=== PATIENT | male | born 1970 | race Caucasian/White ===

== ENCOUNTER 2020-08-23 16:46 | Inpatient (IN) | payer BC ==
[2020-08-23] MEDS ORDERED: SODIUM CHLORIDE 0.9% 1,000 ML IV STA ×2 (17:28)
[2020-08-23] MEDS ORDERED: METOCLOPRAMIDE 5 MG/ML 2 ML VIAL IVP STA (17:31)
[2020-08-23] MEDS ORDERED: fentaNYL (PF) 50 MCG/ML 2 ML AMP IV STA (17:32)
[2020-08-23] MEDS ORDERED: diphenhydrAMINE 50 MG/ML 1 ML VIAL IVP STA (17:32)
[2020-08-23 17:52] LABS: Basophils % (A) 0 %; Eosinophils % (A) 0 %; HCT 40.9 % (39.0-53.0); HGB 14.5 gm/dL (13.0-17.5); Lymphocytes # (A) 0.8 k/uL (1.0-4.8); Lymphocytes % (A) 17 %; MCH 30.6 pg (25.0-35.0); MCHC 35.4 g/dL (31.0-37.0); MCV 86.4 fL (80.0-100.0); Mean Platelet Volume 6.9; Monocytes # (A) 0.4 k/uL (0-1.0); Monocytes % (A) 8 %; Neutrophils # (A) 3.6 k/uL (1.3-7.7); Neutrophils % (A) 74 %; Platelet Count 221 k/uL (150-450); RBC 4.73 m/uL (4.30-5.90); RDW 11.9 % (11.5-15.5); WBC 4.8 k/uL (3.8-10.6)
--- NOTE | 2020-08-23 17:52 | ED ---
Dizziness HPI - General Chief Complaint: Dizziness Stated Complaint: SOB,COVID + Time Seen by Provider: 08/23/20 17:00 Source: patient, EMS, RN notes reviewed Mode of arrival: EMS Limitations: no limitations - History of Present Illness Initial Comments: This is a 50-year-old male was diagnosed with: On the first of this month after having symptoms for about 4 days who is single episode 2 days ago was admitted for observation overnight. The patient presents today with complaints of headache weakness fevers chills sweats shortness of breath. Decreased oral intake generally not feeling well. He states his headache is somewhat global and pressure-like 10/10 severity. No visual difficulties no focal weakness. He does state he had a CAT scan done and lab work at [facility] which apparently was within recently normal limits. MD Complaint: dizziness, lightheadedness, near syncope, difficulty walking - Related Data Home Medications Medication Instructions Recorded Confirmed Azithromycin [Zithromax Z-pack (6 See Taper PO DIRECTED 08/23/20 08/23/20 tabs)] Losartan Potassium [Cozaar] 50 mg PO DAILY 08/23/20 08/23/20 Pravastatin Sodium [Pravachol] 40 mg PO DAILY 08/23/20 08/23/20 Allergies Allergy/AdvReac Type Severity Reaction Status Date / Time Penicillins Allergy Diarrhea Verified 08/23/20 18:31 Review of Systems ROS Statement: Those systems with pertinent positive or pertinent negative responses have been documented in the HPI. ROS Other: All systems not noted in ROS Statement are negative. Past Medical History Past Medical History: Hyperlipidemia, Hypertension Additional Past Medical History / Comment(s): covid 07/2020, History of Any Multi-Drug Resistant Organisms: None Reported Past Surgical History: No Surgical Hx Reported Past Psychological History: No Psychological Hx Reported Smoking Status: Never smoker Past Alcohol Use History: None Reported Past Drug Use History: None Reported General Exam - General Exam Comments Initial Comments: This is a well-developed well-nourished awake alert oriented times female with a [place] Coma Scale of 15 Limitations: no limitations General appearance: alert, anxious, in distress Head exam: Present: other (Evidence of healing abrasion to the right orbit and forehead. No step-off or crepitation) Eye exam: Present: normal appearance, PERRL, EOMI. Absent: scleral icterus, conjunctival injection, periorbital swelling ENT exam: Present: mucous membranes dry Neck exam: Present: tenderness (There is bilateral tenderness), full ROM ( no step-off no crepitation), other (No stridor. Bruits) Respiratory exam: Present: normal lung sounds bilaterally. Absent: respiratory distress, wheezes, rales, rhonchi, stridor Cardiovascular Exam: Present: regular rate, normal rhythm, normal heart sounds. Absent: systolic murmur, diastolic murmur, rubs, gallop, clicks GI/Abdominal exam: Present: soft, normal bowel sounds. Absent: distended, tenderness, guarding, rebound, rigid Extremities exam: Present: normal inspection, full ROM, normal capillary refill. Absent: tenderness, pedal edema, joint swelling, calf tenderness Back exam: Present: normal inspection Neurological exam: Present: alert, oriented X3, CN II-XII intact Psychiatric exam: Present: normal affect, normal mood Skin exam: Present: warm, dry, normal color, other (As above). Absent: rash Course Vital Signs 08/23/20 08/23/20 08/23/20 16:57 18:13 19:05 Temperature 99.9 F H Pulse Rate 84 70 77 Respiratory 18 18 18 Rate Blood Pressure 144/81 141/86 135/80 O2 Sat by Pulse 95 97 95 Oximetry - Reevaluation(s) Reevaluation #1: 08/23/20 21:34 Reevaluation the patient initial encounter reveals his headache was improved this did recur however. EKG Findings - EKG Results: EKG: interpreted by ERMVikki, sinus rhythm (Normal sinus rhythm 81. 162 QRS 80 QT since QTC 358/[address]-T wave changes) Medical Decision Making - Medical Decision Making Patient persisted having some dizziness as well as headache intermittently again the CT was were negative. He does demonstrate bilateral pneumonia on x-ray however. This was not apparent on the x-ray done 2 days ago. Discussed case with Dr. Thompson the patient be admitted IV hydration inpatient care for Covid 19 as well as neurology consultation. - Lab Data Result diagrams: 08/23/20 17:36 08/23/20 18:27 Lab Results 08/23/20 08/23/20 08/23/20 Range/Units 17:36 17:36 17:36 WBC 4.8 (3.8-10.6) k/uL RBC 4.73 (4.30-5.90) m/uL Hgb 14.5 (13.0-17.5) gm/dL Hct 40.9 (39.0-53.0) % MCV 86.4 (80.0-100.0) fL MCH 30.6 (25.0-35.0) pg MCHC 35.4 (31.0-37.0) g/dL RDW 11.9 (11.5-15.5) % Plt Count 221 (150-450) k/uL MPV 6.9 Neutrophils % 74 % Lymphocytes % 17 % Monocytes % 8 % Eosinophils % 0 % Basophils % 0 % Neutrophils # 3.6 (1.3-7.7) k/uL Lymphocytes # 0.8 L (1.0-4.8) k/uL Monocytes # 0.4 (0-1.0) k/uL Eosinophils # 0.0 (0-0.7) k/uL Basophils # 0.0 (0-0.2) k/uL D-Dimer 0.51 (<0.60) mg/L FEU Sodium (137-145) mmol/L Potassium (3.5-5.1) mmol/L Chloride (98-107) mmol/L Carbon Dioxide (22-30) mmol/L Anion Gap mmol/L BUN (9-20) mg/dL Creatinine (0.66-1.25) mg/dL Est GFR (CKD-EPI)AfAm (>60 ml/min/1.73 sqM) Est GFR (CKD-EPI)NonAf (>60 ml/min/1.73 sqM) Glucose (74-99) mg/dL Plasma Lactic Acid Federico 0.8 (0.7-2.0) mmol/L Calcium (8.4-10.2) mg/dL Magnesium (1.6-2.3) mg/dL Total Bilirubin (0.2-1.3) mg/dL AST (17-59) U/L ALT (4-49) U/L Alkaline Phosphatase (38-126) U/L Troponin I (0.000-0.034) ng/mL NT-Pro-B Natriuret Pep pg/mL Total Protein (6.3-8.2) g/dL Albumin (3.5-5.0) g/dL 04/03/21 04/03/21 04/03/21 Range/Units 17:36 18:27 18:27 WBC (3.8-10.6) k/uL RBC (4.30-5.90) m/uL Hgb (13.0-17.5) gm/dL Hct (39.0-53.0) % MCV (80.0-100.0) fL MCH (25.0-35.0) pg MCHC (31.0-37.0) g/dL RDW (11.5-15.5) % Plt Count (150-450) k/uL MPV Neutrophils % % Lymphocytes % % Monocytes % % Eosinophils % % Basophils % % Neutrophils # (1.3-7.7) k/uL Lymphocytes # (1.0-4.8) k/uL Monocytes # (0-1.0) k/uL Eosinophils # (0-0.7) k/uL Basophils # (0-0.2) k/uL D-Dimer (<0.60) mg/L FEU Sodium 134 L (137-145) mmol/L Potassium 4.1 (3.5-5.1) mmol/L Chloride 103 (98-107) mmol/L Carbon Dioxide 24 (22-30) mmol/L Anion Gap 7 mmol/L BUN 12 (9-20) mg/dL Creatinine 0.97 (0.66-1.25) mg/dL Est GFR (CKD-EPI)AfAm >90 (>60 ml/min/1.73 sqM) Est GFR (CKD-EPI)NonAf >90 (>60 ml/min/1.73 sqM) Glucose 88 (74-99) mg/dL Plasma Lactic Acid Federico (0.7-2.0) mmol/L Calcium 7.6 L (8.4-10.2) mg/dL Magnesium 2.0 (1.6-2.3) mg/dL Total Bilirubin 0.9 (0.2-1.3) mg/dL AST 48 (17-59) U/L ALT 42 (4-49) U/L Alkaline Phosphatase 50 (38-126) U/L Troponin I <0.012 (0.000-0.034) ng/mL NT-Pro-B Natriuret Pep 65 pg/mL Total Protein 6.1 L (6.3-8.2) g/dL Albumin 3.4 L (3.5-5.0) g/dL - Radiology Data Radiology results: report reviewed (Imaging reviewed no acute findings I did review the imaging from [facility] as well as a hospital ER record that was faxed to this facility.), image reviewed Disposition Clinical Impression: Dizziness, Cephalgia, COVID-19, Viral pneumonia, Dehydration, History of syncope Disposition: ADMITTED IP TO THIS [facility] Condition: Fair Referrals: Lamberto Barry DO [Primary Care Provider] - 1-2 days
--- NOTE | 2020-08-23 17:59 | XR ---
EXAMINATION TYPE: XR chest 2V DATE OF EXAM: 08/23/2020 COMPARISON: 11/27/2011 HISTORY: Pain TECHNIQUE: 2 views FINDINGS: There is interstitial infiltrates and atelectasis in the mid and lower lung granados. Heart s ize is normal. There is no heart failure. There is poor inspiration. IMPRESSION: New pulmonary infiltrates and atelectasis bilaterally compared to old exam. Normal heart.
[2020-08-23 18:46] LABS: ALT 42 U/L (4-49); AST 48 U/L (17-59); African American GFR (CKD) >90 (>60 ml/min/1.73 sqM); Albumin 3.4 g/dL (3.5-5.0); Alkaline Phosphatase 50 U/L (38-126); Anion Gap 7 mmol/L; Blood Urea Nitrogen 12 mg/dL (9-20); Calcium 7.6 mg/dL (8.4-10.2); Carbon Dioxide 24 mmol/L (22-30); Chloride 103 mmol/L (98-107); Glucose 88 mg/dL (74-99); Non-African American GFR(CKD) >90 (>60 ml/min/1.73 sqM); Sodium 134 mmol/L (137-145); Total Bilirubin 0.9 mg/dL (0.2-1.3); Total Protein 6.1 g/dL (6.3-8.2)
[2020-08-23 18:51] LABS: Potassium 4.1 mmol/L (3.5-5.1)
[2020-08-23] MEDS ORDERED: KETOROLAC 15 MG/ML 1 ML VIAL IVP STA (20:30)
--- NOTE | 2020-08-23 20:59 | CT ---
EXAMINATION TYPE: CT brain wo con DATE OF EXAM: 08/23/2020 COMPARISON: None HISTORY: Dizziness and headache. CT DLP: 1129.4 mGycm Automated exposure control for dose reduction was used. Ventricles have normal size. There is no mass effect nor midline shift. There is no sign of intracran ial hemorrhage. Calvarium is intact. Skull base is intact. There is no evidence of cerebral edema. IMPRESSION: Negative unenhanced head CT scan.
[2020-08-23] MEDS ORDERED: ONDANSETRON 4 MG/2 ML VIAL IVP PRN (21:37)
[2020-08-23] MEDS ORDERED: NALOXONE 0.4 MG/ML 1 ML VIAL IV PRN (21:37)
[2020-08-23] MEDS ORDERED: dexAMETHasone 2 MG TAB PO STA (21:52)
[2020-08-23] MEDS: AZITHROMYCIN 250 MG TAB PO SCH (22:49)
[2020-08-23] MEDS: ACETAMINOPHEN TAB 325 MG TAB PO PRN (23:21)
[2020-08-24] MEDS: ACETAMINOPHEN TAB 325 MG TAB PO PRN (05:34)
[2020-08-24] MEDS: CHOLECALCIFEROL 25 MCG (1000 IU) TABLET PO SCH (09:56)
[2020-08-24] MEDS: LOSARTAN 50 MG TAB PO SCH (09:56)
[2020-08-24] MEDS: ASCORBIC ACID 500 MG TAB PO SCH (09:56)
[2020-08-24] MEDS: ZINC SULFATE 220 MG CAP PO SCH (09:56)
[2020-08-24] MEDS: ENOXAPARIN 40 MG/0.4 ML SYRINGE SQ SCH (09:56)
[2020-08-24 11:02] LABS: Basophils % (A) 0 %; Eosinophils % (A) 0 %; Lymphocytes # (A) 0.5 k/uL (1.0-4.8); Lymphocytes % (A) 12 %; MCH 30.5 pg (25.0-35.0); MCHC 34.8 g/dL (31.0-37.0); MCV 87.5 fL (80.0-100.0); Mean Platelet Volume 6.3; Monocytes # (A) 0.3 k/uL (0-1.0); Monocytes % (A) 7 %; Neutrophils # (A) 3.2 k/uL (1.3-7.7); Neutrophils % (A) 80 %; Platelet Count 262 k/uL (150-450); RBC 4.92 m/uL (4.30-5.90); RDW 12.5 % (11.5-15.5)
--- NOTE | 2020-08-24 11:03 | P.CNNES ---
History of Present Illness Consult date: 08/24/20 Requesting physician: Akil Ruffin Reason for Consult: headache and dizziness History of Present Illness: This is a 50-year-old gentleman with medical history of hypertension and hyperlipidemia who presents to the emergency department on 08/23/2020 complaining of headache and generalized weakness. The patient has been having the fevers and shortness of breath. According to the patient the he's been having coughing, low-grade fever for the last 4-5 days. He was recently diagnosed with Covid 19 couple days ago Patient stated that on Tuesday morning around 2:00 in the morning he got out of bed and that he took a couple steps he felt lightheaded and he felt dizzy like the room is spinning then that he fell on the ground. He stated that he passed upper 1 minutes. His as a result called EMS. He denied any urinary, bowel incontinence. Denied any tongue bite that. He was taken to [facility] there they did affect a CT of the head and was told was normal. He stated that he was given IV saline. At the outside facility when they stood him up he felt lightheaded and dizzy. Then the patient was discharged home. Patient denies off any previous history of seizures in the past. For the last 4 days he's been having this severe headache that starts in the bilateral frontal and that radiates throughout his head. Headache is 10/10, constant and feels throbbing. He has minimal photophobia but denies any photophobia. Denies any nausea or vomiting. Denies of any visual disturbance, focal weakness, numbness or difficulty getting his words out. Denies any headaches like this before. He still feels dizzy at rest and to position but more at position. Denies of any ringing or hearing loss. Denies any further passing out episodes. Workup in the hospital consisted of: Initial vital signs: Pressure of 144/81, heart rate of 84, respiratory of 18, temperature of 99.9 Fahrenheit oral pulse ox of 95% room air. CT of the head is reported as negative unenhanced head CT scan. Chest x-ray was reported as new pulmonary infiltrates and atelectasis bilaterally compared to old exam. Normal heart. His CBC and basic is normal. While the metabolic basic panel the sodium is minimally low which is 134. The glucose is 88 which is normal calcium is 7.6 which seems low magnesium is 2.0. Review of Systems Review of system: The 12 point system was reviewed and apparent positive and negative per HPI. Past Medical History Past Medical History: Hyperlipidemia, Hypertension Additional Past Medical History / Comment(s): covid 07/2020, History of Any Multi-Drug Resistant Organisms: None Reported Past Surgical History: No Surgical Hx Reported Past Psychological History: No Psychological Hx Reported Smoking Status: Never smoker Past Alcohol Use History: None Reported Past Drug Use History: None Reported Medications and Allergies Home Medications Medication Instructions Recorded Confirmed Type Azithromycin [Zithromax Z-pack (6 See Taper PO DIRECTED 08/23/20 08/23/20 History tabs)] Losartan Potassium [Cozaar] 50 mg PO DAILY 08/23/20 08/23/20 History Pravastatin Sodium [Pravachol] 40 mg PO DAILY 08/23/20 08/23/20 History Allergies Allergy/AdvReac Type Severity Reaction Status Date / Time Penicillins Allergy Diarrhea Verified 08/23/20 18:31 Physical Examination - Vital Signs Vital Signs: Vital Signs Temp Pulse Resp BP Pulse Ox 08/24/20 05:03 98.3 F 78 16 101/58 93 L 08/23/20 19:05 77 18 135/80 95 08/23/20 18:13 70 18 141/86 97 08/23/20 16:57 99.9 F H 84 18 144/81 95 Intake and Output 08/23/20 08/24/20 08/24/20 22:59 06:59 14:59 Other: Weight 99.79 kg GENERAL: The patient is lying in bed and is not in acute distress. HENT: Abrasion over the right forehead, right periorbital region (from fall this past ). CHEST: The heart rate is regular rate rhythm. No murmurs to auscultation. No carotid bruit bilaterally. LUNG: Had bouts of cough during examination. Not labored breathing. ABDOMEN/GI: Bowel sounds present in all 4 quadrants. No tenderness to palpation throughout. NEUROLOGICAL: Higher mental function: The patient is awake, alert, oriented to self, place and time. Patient is following commands. No aphasia and no neglect. Cranial nerves: The pupils are round, equal (4mm) and reactive to light and accommodation. Visual granados are full to confrontation throughout. Extraocular movement is intact no nystagmus is noted. Facial sensation is normal to touch throughout. The facial strength is normal throughout. Hearing is normal bilaterally to hand rub. Tongue is midline and moved [id number] without any difficulty. No dysarthria is noted. Shoulder shrug is normal bilaterally. Motor: Gait is normal. The strength is 5 over 5 throughout. Normal tone and bulk. Cerebellum: Normal finger to nose heel to mcmahan bilaterally. Sensation: Sensation is normal to touch throughout. Reflexes (right/left): 2+ throughout. Plantars are downgoing bilaterally. Results - Laboratory Findings CBC and BMP: 08/24/20 10:45 08/24/20 10:45 Abnormal Lab Findings: Abnormal Labs 08/23/20 08/23/20 17:36 18:27 Lymphocytes # 0.8 L Sodium 134 L Calcium 7.6 L Total Protein 6.1 L Albumin 3.4 L Assessment and Plan Assessment: Syncopal episode: Likely due to dehydration and possibly component of positive orthostatic hypotension (from history) due to COVID 19 pneumonitis Patient generalized weakness and cephalgia is likely due to his underlying covid 19 pnemonia Acute covid 19 pneumonia Hypertension Hyperlipidemia Plan: I ordered a CT angiography of the head and neck to rule out any aneurysm. I ordered MRI of the brain to rule out any intracranial lesions. I ordered orthostatic vitals and 2D echo. Ordered the an a stat EEG. I'll not start the patient on an antiepileptic drug unless there is applicable discharges or seizure on the EEG. Started the patient on Fioricets when necessary every 4 hours for the headaches We'll defer the rest of the medical management to the primary team. The plan was discussed with the patient as well as the patient's nurse. Dr. Lauren will take over neurology coverage starting tomorrow AM. Thank you for the consultation. Karel Moss M.D. Neuro-hospitalist Time with Patient: Greater than 30
[2020-08-24 11:14] LABS: African American GFR (CKD) >90 (>60 ml/min/1.73 sqM); Anion Gap 6 mmol/L; Blood Urea Nitrogen 14 mg/dL (9-20); Calcium 8.6 mg/dL (8.4-10.2); Carbon Dioxide 28 mmol/L (22-30); Chloride 101 mmol/L (98-107); Creatine Kinase 200 U/L (55-170); Glucose 132 mg/dL (74-99); LDH 560 U/L (313-618); Non-African American GFR(CKD) 80 (>60 ml/min/1.73 sqM); Potassium 4.5 mmol/L (3.5-5.1); Sodium 135 mmol/L (137-145)
[2020-08-24] MEDS: BUTALB/APAP/CAFF 50-325-40MG TAB PO PRN ×3 (11:48→21:45)
[2020-08-24] MEDS: AZITHROMYCIN 250 MG TAB PO SCH (11:49)
[2020-08-24] MEDS: PRAVASTATIN SODIUM 40 MG TAB PO SCH (11:49)
--- NOTE | 2020-08-24 13:57 | CT ---
EXAMINATION TYPE: CT angio head neck DATE OF EXAM: 08/24/2020 COMPARISON: CT head 08/23/2020 HISTORY: 50 year-old male PLASENCIA, dizziness, covid positive TECHNIQUE: Contiguous axial scanning of the head and neck performed with IV Contrast, patient injecte d with 65 mL of Isovue 370. Coronal/sagittal MIP reconstructions performed. 3-D reconstructions gener ated on a dedicated independent workstation. CT DLP: 497 mGycm Automated exposure control for dose reduction was used. FINDINGS: NECK: Patchy peripheral COVID pneumonitis in the visualized upper lungs. Conventional arch vessel branching anatomy. Both vertebral arteries are patent throughout their course. The right common and internal carotid arteries are patent. The left common and internal carotid arteries are patent. HEAD: Small caliber to the V4 segment left vertebral artery and the basilar artery. Persistent origin left posterior cerebral artery and a prominent posterior communicating artery on the right. Posterio r circulation is patent. The internal carotid arteries and remainder of the anterior circulation is patent. No aneurysmal change is seen. Dural venous sinuses are patent. Moderate mucosal thickening floor of the left maxillary sinus and mild on the right. IMPRESSION: 1. NECK: PATENT CAROTID AND VERTEBRAL ARTERIES OF THE NECK. PATCHY PERIPHERAL COVID PNEUMONIA IN THE VISUALIZED UPPER LUNGS. 2. 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 FINDINGS MAY PREDISPOSE TO SYMPTOMS OF VERTEBROBASILAR INSUFFICIENCY. OTHERWISE, NO LARGE VESSEL INTR ACRANIAL ARTERIAL OCCLUSION, SIGNIFICANT STENOSIS, OR ANEURYSMAL CHANGE IS SEEN.
[2020-08-24 16:28] LABS: Ferritin 841.8 ng/mL (22.0-322.0)
--- NOTE | 2020-08-24 17:27 | EEG ---
ELECTROENCEPHALOGRAM REPORT DATE OF SERVICE: 08/24/2020 CLINICAL HISTORY: This is a 50-year-old gentleman who had a syncopal episode on 08/20/2020. The episode lasted for 1 minute. The video EEG is obtained to evaluate for seizure and epileptiform activity. RELEVANT MEDICATION: The patient is not on any antiepileptic drugs. EEG TYPE: A routine 21 channel EEG is performed with video using the 10/20 electrode placement system. DESCRIPTION: Wakefulness is only obtained. During wakefulness, there is a posterior dominant rhythm of well modulated, well sustained, 8.5-9 hertz activity. There is no sleep architecture seen over the bilateral hemispheres. There is no focal slowing. Interictal and ictal is none. ACTIVATION PROCEDURES: Photic stimulation and hyperventilation are not performed. CLINICAL INTERPRETATION: This is a normal routine EEG during awake state. There are no focal slowing, epileptiform discharges or seizures on the EEG. Clinical correlation is recommended. EAGLE / RUBÉNN: [id number] /
--- NOTE | 2020-08-24 18:29 | P.HPIM ---
History of Present Illness H&P Date: 08/24/20 Chief Complaint: Dizziness/SOB/COVIDpositive 50-year-old male was diagnosed with: On the first of this month after having symptoms for about 4 days who is single episode 2 days ago was admitted for observation overnight. The patient presents today with complaints of headache weakness fevers chills sweats shortness of breath. Decreased oral intake generally not feeling well. He states his headache is somewhat global and pressure-like 10/10 severity. No visual difficulties no focal weakness. He does state he had a CAT scan done and lab work at [facility] which apparently was within recently normal limits. Workup in the hospital consisted of: Initial vital signs: Pressure of 144/81, heart rate of 84, respiratory of 18, temperature of 99.9 Fahrenheit oral pulse ox of 95% room air. CT of the head is reported as negative unenhanced head CT scan. Chest x-ray was reported as new pulmonary infiltrates and atelectasis bilaterally compared to old exam. Normal heart. His CBC and basic is normal. While the metabolic basic panel the sodium is minimally low which is 134. The glucose is 88 which is normal calcium is 7.6 which seems low magnesium is 2.0. Review of Systems REVIEW OF SYSTEMS: CONSTITUTIONAL: No fever, no malaise, no fatigue. HEENT: No recent visual problems or hearing problems. Denied any sore throat. CARDIOVASCULAR: No chest pain, orthopnea, PND, no palpitations, no syncope. PULMONARY: No shortness of breath, no cough, no hemoptysis. GASTROINTESTINAL: No diarrhea, no nausea, no vomiting, no abdominal pain. NEUROLOGICAL: No headaches, no weakness, no numbness. HEMATOLOGICAL: Denies any bleeding or petechiae. GENITOURINARY: Denies any burning micturition, frequency, or urgency. MUSCULOSKELETAL/RHEUMATOLOGICAL: Denies any joint pain, swelling, or any muscle pain. ENDOCRINE: Denies any polyuria or polydipsia. The rest of the 14-point review of systems is negative. Past Medical History Past Medical History: Hyperlipidemia, Hypertension Additional Past Medical History / Comment(s): covid 07/2020, History of Any Multi-Drug Resistant Organisms: None Reported Past Surgical History: No Surgical Hx Reported Past Psychological History: No Psychological Hx Reported Smoking Status: Never smoker Past Alcohol Use History: None Reported Past Drug Use History: None Reported Medications and Allergies Home Medications Medication Instructions Recorded Confirmed Type Azithromycin [Zithromax Z-pack (6 See Taper PO DIRECTED 08/23/20 08/23/20 History tabs)] Losartan Potassium [Cozaar] 50 mg PO DAILY 08/23/20 08/23/20 History Pravastatin Sodium [Pravachol] 40 mg PO DAILY 08/23/20 08/23/20 History Allergies Allergy/AdvReac Type Severity Reaction Status Date / Time Penicillins Allergy Diarrhea Verified 08/23/20 18:31 Physical Exam Vitals: Vital Signs Temp Pulse Resp BP Pulse Ox 08/24/20 08:00 16 08/24/20 05:03 98.3 F 78 16 101/58 93 L 08/24/20 02:00 20 08/23/20 19:05 77 18 135/80 95 08/23/20 18:13 70 18 141/86 97 08/23/20 16:57 99.9 F H 84 18 144/81 95 Intake and Output 08/23/20 08/24/20 08/24/20 22:59 06:59 14:59 Other: # Voids 2 2 Weight 99.79 kg General appearance: alert, anxious, in distress Head exam: Present: other (Evidence of healing abrasion to the right orbit and forehead. No step-off or crepitation) Eye exam: Present: normal appearance, PERRL, EOMI. Absent: scleral icterus, conjunctival injection, periorbital swelling ENT exam: Present: mucous membranes dry Neck exam: Present: tenderness (There is bilateral tenderness), full ROM ( no step-off no crepitation), other (No stridor. Bruits) Respiratory exam: Present: normal lung sounds bilaterally. Absent: respiratory distress, wheezes, rales, rhonchi, stridor Cardiovascular Exam: Present: regular rate, normal rhythm, normal heart sounds. Absent: systolic murmur, diastolic murmur, rubs, gallop, clicks GI/Abdominal exam: Present: soft, normal bowel sounds. Absent: distended, tenderness, guarding, rebound, rigid Extremities exam: Present: normal inspection, full ROM, normal capillary refill. Absent: tenderness, pedal edema, joint swelling, calf tenderness Back exam: Present: normal inspection Neurological exam: Present: alert, oriented X3, CN II-XII intact Psychiatric exam: Present: normal affect, normal mood Skin exam: Present: warm, dry, normal color, other (As above). Absent: rash Results CBC & Chem 7: 08/24/20 10:45 08/24/20 10:45 Labs: Abnormal Lab Results - Last 24 Hours (Table) 08/23/20 08/23/20 Range/Units 17:36 18:27 Lymphocytes # 0.8 L (1.0-4.8) k/uL Sodium 134 L (137-145) mmol/L Calcium 7.6 L (8.4-10.2) mg/dL Total Protein 6.1 L (6.3-8.2) g/dL Albumin 3.4 L (3.5-5.0) g/dL Assessment and Plan Assessment: 1. Syncopal episode; multifactorial - Possibly secondary to dehydration with orthostatic hypotension versus due to covert 19 pneumonitis - Neurology on board and recommending CT of head and neck to rule out any aneurysm; MRI of the brain is ordered to rule out intracranial lesions - Orthostatic vital signs every shift - 2-D echo - Stat EEG is ordered to rule out seizure activity although suspicion is low 2. Acute covid 19 pneumonia - Patient is started on supplemental oxygen, IV dexamethasone, vitamin C and D, zinc sulfate and azithromycin - Pulmonary is consulted for further recommendations 3. Cephalgia/generalized weakness; possibly related to Covid 19 infection 4. Hypertension; losartan 50 mg daily 5. Hyperlipidemia; pravastatin 40 mg daily DVT prophylaxis; SCDs/subcu Lovenox CODE STATUS; full code
[2020-08-25 09:09] LABS: African American GFR (CKD) 90.2 (60.0-200.0); Anion Gap 7.5 mmol/L (4.00-12.00); BUN/Creat Ratio 14.55 Ratio (12.00-20.00); Calcium 8.6 mg/dL (8.7-10.3); Carbon Dioxide 27.5 mmol/L (21.6-31.8); Non-African American GFR(CKD) 77.9 (60.0-200.0); Potassium 3.9 mmol/L (3.5-5.5)
[2020-08-25] MEDS: ENOXAPARIN 40 MG/0.4 ML SYRINGE SQ SCH (09:31)
[2020-08-25] MEDS: AZITHROMYCIN 250 MG TAB PO SCH (09:32)
[2020-08-25] MEDS: PRAVASTATIN SODIUM 40 MG TAB PO SCH (09:32)
[2020-08-25] MEDS: ZINC SULFATE 220 MG CAP PO SCH (09:32)
[2020-08-25] MEDS: ASCORBIC ACID 500 MG TAB PO SCH (09:32)
[2020-08-25] MEDS: LOSARTAN 50 MG TAB PO SCH (09:32)
[2020-08-25] MEDS: CHOLECALCIFEROL 25 MCG (1000 IU) TABLET PO SCH (09:32)
[2020-08-25] MEDS: BUTALB/APAP/CAFF 50-325-40MG TAB PO PRN (09:38)
[2020-08-25] MEDS ORDERED: LORazepam 2 MG/ML INJ IV STA (10:17)
[2020-08-25] MEDS: COLCHICINE 0.6 MG EACH PO SCH (12:59)
--- NOTE | 2020-08-25 13:01 | P.CNPUL ---
History of Present Illness Consult date: 08/25/20 Reason for consult: pneumonia Chief complaint: Dizziness and passing out episode. History of present illness: This is a 50-year-old white male, known history of hypertension and hypercholesterolemia, patient has been feeling ill for the last 4 days. Symptoms have been mostly classic symptoms of covid 19 infection. Including intermittent episodes of fever, severe headache, night sweats, intermittent diarrhea, loss of sensation of taste and smell. And last ones they, patient woke up from his sleep with significant night sweats, and as he walked to get a drink, patient passed out for about 1 minute in the living room. picked him up, and he was unconscious for about a minute. He was brought into the ER, workup included CT of the brain, chest x-ray, and neurological consultation as well as CT angiogram of the head and neck. And EEG. All of it was nondiagnostic. Chest x-ray clearly showed new pulmonary infiltrates and atelectasis bilaterally. Consistent with mild case of acute Covid 19 pneumonitis. Patient is on room air, saturation is 94%. Not requiring any oxygen supplement. CBC was relatively normal left lites are normal renal profile is normal LDH was borderline elevated at 560 pro calcitonin was normal 0.03. Lactic acid was normal. D-dimer 0.51. Review of Systems CONSTITUTIONAL: Fever aches and pains fatigue and weakness and night sweats HEENT: Loss of sensation of taste and smell. CARDIOVASCULAR: No chest pain or orthopnea but he did have syncopal episode PULMONARY: Cough, minimal shortness of breath with activity only. GASTROINTESTINAL: Occasional diarrhea for the last few days. NEUROLOGICAL: Severe headache and passing out episode. HEMATOLOGICAL: Negative GENITOURINARY: Negative, Musculoskeletal vague aches and pains. ENDOCRINE: Negative Past Medical History Past Medical History: Hyperlipidemia, Hypertension Additional Past Medical History / Comment(s): covid 07/2020, History of Any Multi-Drug Resistant Organisms: None Reported Past Surgical History: No Surgical Hx Reported Past Psychological History: No Psychological Hx Reported Smoking Status: Never smoker Past Alcohol Use History: None Reported Past Drug Use History: None Reported Medications and Allergies Home Medications Medication Instructions Recorded Confirmed Type Azithromycin [Zithromax Z-pack (6 See Taper PO DIRECTED 08/23/20 08/23/20 History tabs)] Losartan Potassium [Cozaar] 50 mg PO DAILY 08/23/20 08/23/20 History Pravastatin Sodium [Pravachol] 40 mg PO DAILY 08/23/20 08/23/20 History Allergies Allergy/AdvReac Type Severity Reaction Status Date / Time Penicillins Allergy Diarrhea Verified 08/23/20 18:31 Physical Exam Vitals: Vital Signs Temp Pulse Pulse Resp BP Pulse Ox 08/25/20 07:00 98.0 F 82 16 145/81 93 L 08/25/20 02:00 98.4 F 75 16 143/78 94 L 08/25/20 00:08 18 08/24/20 20:00 99.4 F 82 18 148/82 94 L 08/24/20 14:59 98.4 F 72 18 146/82 94 L 08/24/20 14:00 16 Intake and Output 08/24/20 08/25/20 08/25/20 22:59 06:59 14:59 Other: # Voids 1 3 Physical Exam: Revealed a 50-year-old white male pleasant in no distress, on room air. Head: Normocephalic, patient did have evidence of healing abrasion on the right orbit and forehead. HEENT:[Neck is supple.] [No neck masses.] [No thyromegaly.] [No JVD.] Chest: [Diminished breath sounds at the bases minimal crackles at the bases no rhonchi and no wheezes. Cardiac Exam: [Normal S1 and S2, no S3 gallop, no murmur.] Abdomen: [Soft, nontender, no megaly, no rebound, no guarding, normal bowel sounds.] Extremities: [No clubbing, no edema, no cyanosis.] Neurological Exam: [No focal neurologic deficit.] Alert and oriented 3. Skin: Abrasion right orbit and the right forehead area./Healed fully. Results - Laboratory Findings CBC and BMP: 08/24/20 10:45 08/25/20 05:41 PT/INR, D-dimer D-Dimer 0.51 mg/L FEU (<0.60) 08/23/20 17:36 Abnormal lab findings: Abnormal Labs 08/23/20 08/23/20 08/24/20 17:36 18:27 10:45 Lymphocytes # 0.8 L 0.5 L Sodium 134 L Glucose Calcium 7.6 L Ferritin Creatine Kinase Total Protein 6.1 L Albumin 3.4 L 08/24/20 08/25/20 10:45 05:41 Lymphocytes # Sodium 135 L Glucose 132 H Calcium 8.6 L Ferritin 841.8 H Creatine Kinase 200 H Total Protein Albumin - Diagnostic Findings Chest x-ray: image reviewed (As noted in HPI.) Assessment and Plan Assessment: Impression: Syncopal episode strongly suspect orthostatic hypotension and dehydration related to his Covid 19 infection and his multiple constitutional symptoms including night sweats. Acute Covid 19 pneumonia, but no significant hypoxia. Multiple constitutional symptoms secondary to Covid 19 infection. Headaches secondary to Covid 19 infection. Benign essential hypertension. Dyslipidemia. Recommendation: No need for supplemental oxygen at this point. Continue the Covid 19 cocktail. Discontinue Zithromax. Continue IV Decadron. We will add colchicine. Continue zinc. Continue Lovenox, prophylaxis dose. Continue ascorbic acid. Continue to monitor inflammatory markers. Consider discharge planning in the next 24 hours. We'll continue to follow while inpatient. Time with Patient: Greater than 30
--- NOTE | 2020-08-25 15:00 | MR ---
EXAMINATION TYPE: MR brain wo/w con DATE OF EXAM: 08/25/2020 2:53 PM COMPARISON: NONE HISTORY: Headache, dizziness, Covid CONTRAST: Patient received 10 mL intravenous Gadavist gadolinium contrast. Multiplanar and multispin-echo imaging of the brain was performed . Pre and post contrast enhanced i mages are obtained. The ventricles, basal cisterns and sulci overlying the cerebral convexities are mildly enlarged. There is evidence of minimal periventricular white matter ischemic demyelination. Remote deep white matter insults are also noted. No acute edema is seen on diffusion weighted imaging. There is no evidence for midline shift or mass effect. Acute intracranial hemorrhage or extra-axial collection is not evident. No enhancing lesions are seen. The paranasal sinuses and mastoid air cells are well-aerated. IMPRESSION: Age-related atrophic and chronic small vessel ischemic change. No acute intracranial process at this time. No enhancing lesions are seen.
[2020-08-25] MEDS ORDERED: guaiFENesin-Coden 100-10MG/5ML 10 ML CUP PO PRN (15:18)
--- NOTE | 2020-08-25 15:34 | P.PN ---
Subjective Progress Note Date: 08/25/20 This is a 50-year-old gentleman admitted with syncope, acute covid- 19 pneumonia and multiple other medical issues. Neuro workup in progress, Brain MRI scheduled. Pulmonary consult in place, recommendations pending. Harsh nonproductive cough. Maintaining O2 sats in the 90s on room air. Denies chest pain, palpitations. Afebrile, normal WBC. Objective - Vital Signs Vital signs: Vital Signs Temp 98.0 F 08/25/20 07:00 Pulse 82 08/25/20 07:00 Resp 16 08/25/20 07:00 BP 145/81 08/25/20 07:00 Pulse Ox 93 L 08/25/20 07:00 Intake & Output 08/24/20 08/25/20 08/25/20 18:59 06:59 18:59 Intake Total 550 Balance 550 Intake: Oral 550 Other: # Voids 1 3 - Exam PHYSICAL EXAM: VITAL SIGNS: As above GENERAL: Sitting up in bed, no acute distress. HEENT: Conjunctivae normal. eyes normal. Healed Right frontal abrasion 1 inch with ecchymosis around right orbit including right side of nose. NECK: No JVD. No thyroid enlargement. No LNs CARDIOVASCULAR: S1, S2 regular. No murmur. RESPIRATION: Breath sounds diminished in the bases. No rhonchi, minimal crackles. ABDOMEN: Soft, nontender . No guarding. no masses palpable. No ascites, No hepatosplenomegaly.Bowel sounds heard. LEGS: No edema. no swelling. PSYCHIATRY: Alert and oriented X3, mood and affect normal. NERVOUS SYSTEM: Cranial N 2-12 grossly normal. No focal deficits Skin: Warm and dry, no lesions. - Labs CBC & Chem 7: 08/24/20 10:45 08/25/20 05:41 Labs: Abnormal Lab Results - Last 24 Hours (Table) 08/24/20 08/25/20 Range/Units 10:45 05:41 Calcium 8.6 L (8.7-10.3) mg/dL Ferritin 841.8 H (22.0-322.0) ng/mL Assessment and Plan Assessment: Syncope, etiology unclear, suspect secondary to dehydration, orthostatic hypotension related to acute Covid 19 pneumonitis Increasing generalized weakness secondary to the above Cephalgia secondary to the above Mild hyponatremia secondary to #1 Acute renal insufficiency secondary to #1 Hypertension Hyperlipidemia Plan: Continue on current medication regime ,monitoring and symptomatic treatmen t. Maintain Covid regimen .Evaluated by neurology with recommendations noted and appreciated; neuro workup in progress, scheduled for MRI of brain. Ativan prior to MRI r/t claustrophobia. Orthostatic vital signs every shift. Pulmonary consult in place, recommendations pending. Increasing generalized weakness, PT/OT consulted. Discharge planning in progress for tomorrow, pending clearance from neurology and pulmonary. The impression and plan of care has been dictated as directed. : I performed a history and examination of this patient, discussed the same with the dictator. I agree with the dictator's note ,documented as a scribe. Any additional findings or plans will be noted.
--- NOTE | 2020-08-25 18:00 | ECHOF ---
Referral Reason:syncope MEASUREMENTS -------- HEIGHT: 180.3 cm WEIGHT: 99.8 kg BP: 143/78 IVSd: 1.2 cm (0.6 - 1.1) LVIDd: 2.8 cm (3.9 - 5.3) LVPWd: 1.5 cm (0.6 - 1.1) EDV(Teich): 29 ml IVSs: 1.3 cm LVIDs: 1.5 cm LVPWs: 1.3 cm %IVS Thck: 6 % ESV(Teich): 6 ml EF(Teich): 78 % %FS: 45 % SV(Teich): 23 ml LALs A4C: 4.7 cm LAAs A4C: 13.9 cm LAESV A-L A4C: 34 ml LAESV MOD A4C: 33 ml LALs A2C: 5.0 cm LAAs A2C: 11.5 cm LAESV A-L A2C: 23 ml LAESV MOD A2C: 21 ml LAESV(A-L): 29 ml LAESV Index (A-L): 13.02 ml/m Ao Diam: 3.7 cm (2.0 - 3.7) LA Diam: 3.2 cm (2.7 - 3.8) AV Cusp: 2.4 cm (1.5 - 2.6) EPSS: 1.2 cm MV E Erasto: 0.70 m/s MV DecT: 212 ms MV Dec Johnston: 3.3 m/s MV A Erasto: 0.62 m/s MV E/A Ratio: 1.13 MV PHT: 61 ms MR Vmax: 1.03 m/s MR maxP.27 mmHg AV Vmax: 1.13 m/s AV maxP.09 mmHg TR Vmax: 0.97 m/s TR maxP.79 mmHg RAP: 5.00 mmHg RVSP: 8.79 mmHg MV EF SLOPE: 111.34 mm/s (70 - 150) MV EXCURSION: 16.66 mm (> 18.000) FINDINGS -------- This was a technically good study. The left ventricular size is normal. There is mild concentric left ventricular hypertrophy. Overa ll left ventricular systolic function is normal with, an EF between 55 - 60 %. The diastolic fillin g pattern is normal for the age of the patient 8.42. The right ventricle is normal in size. The left atrial size is normal. Normal LA size by volume 22+/-6 ml/m2. The right atrial size is normal. The aortic valve is trileaflet and appears structurally normal. The mitral valve is normal. There is trace mitral regurgitation. The tricuspid valve appears structurally normal. Trace tricuspid regurgitation present. Right amrita tricular systolic pressure is normal at < 35 mmHg. There is no pulmonic regurgitation present. The aortic root size is normal. IVC Not well visulized. There is no pericardial effusion. CONCLUSIONS -------- 1. The left ventricular size is normal. 2. There is mild concentric left ventricular hypertrophy. 3. Overall left ventricular systolic function is normal with, an EF between 55 - 60 %. 4. The diastolic filling pattern is normal for the age of the patient 8.42 5. There is trace mitral regurgitation. 6. Trace tricuspid regurgitation present. 7. There is no pericardial effusion. ORTHOTIST/PROSTHETIST: Tootie Rodgers RDCS
--- NOTE | 2020-08-25 23:17 | P.PN ---
Subjective Progress Note Date: 08/25/20 Patient was seen for a follow-up. Initially seen by Dr. Karel Moss. Please refer to his note for details. Patient has Covid-19. Patient had a syncopal spell at home, when he wanted to go to the bathroom and passed out. Patient had computed tomography scan of the head which was negative. EEG normal. Patient at present feels better, but still feels shortness of breath. Denies any focal symptoms. Objective - Vital Signs Vital signs: Vital Signs Temp 98.0 F 08/25/20 07:00 Pulse 87 08/25/20 15:43 Resp 16 08/25/20 07:00 BP 121/74 08/25/20 15:43 Pulse Ox 93 L 08/25/20 07:00 Intake & Output 08/24/20 08/25/20 08/25/20 18:59 06:59 18:59 Intake Total 550 840 Balance 550 840 Intake: Oral 550 840 Other: # Voids 1 3 3 - Exam On examination patient's mental status, speech and language functions are normal. Cranial nerves are normal. Visual granados are full. Face is symmetric. Muscle strength is no pronator drift and the strength is normal in arms and legs reflexes symmetric and plantars are downgoing. No ataxia. - Labs CBC & Chem 7: 08/24/20 10:45 08/25/20 05:41 Labs: Abnormal Lab Results - Last 24 Hours (Table) 08/25/20 Range/Units 05:41 Calcium 8.6 L (8.7-10.3) mg/dL Assessment and Plan Assessment: * Syncopal spell, likely vasovagal versus orthostatic. * Acute Covid-19 infection. Plan: * Patient underwent MRI of the brain, which was normal. * 2-D echo showed normal left-ventricular size. Mild concentric LVH. Overall left-ventricular systolic function is normal with EF between 55-60%. Trace MR. * CTA of neck showed patent carotid and vertebral arteries of the neck. 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 Otherwise, no large vessel intracranial arterial occlusion, significant stenosis or aneurysmal change. * Patient's EEG is normal. * Orthostatics are negative. Patient's supine blood pressure 121/74, with pulse rate 87. On sitting up was 113/73 with pulse of 93. On standing up blood pressure 120/64 and pulse rate of 101. * No other neurological workup indicated. Neurology will sign off. Please reconsult if any other concerns.
[2020-08-26 08:06] VITALS: BP 120/74; PULSE 68; RESP 16; TEMP 97.4
[2020-08-26] MEDS: ZINC SULFATE 220 MG CAP PO SCH (09:19)
[2020-08-26] MEDS: LOSARTAN 50 MG TAB PO SCH (09:19)
[2020-08-26] MEDS: COLCHICINE 0.6 MG EACH PO SCH (09:19)
[2020-08-26] MEDS: ENOXAPARIN 40 MG/0.4 ML SYRINGE SQ SCH (09:19)
[2020-08-26] MEDS: ASCORBIC ACID 500 MG TAB PO SCH (09:19)
[2020-08-26 10:36] LABS: African American GFR (CKD) 90.2 (60.0-200.0); Anion Gap 9.1 mmol/L (4.00-12.00); BUN/Creat Ratio 15.45 Ratio (12.00-20.00); Calcium 8.6 mg/dL (8.7-10.3); Carbon Dioxide 27.9 mmol/L (21.6-31.8); Non-African American GFR(CKD) 77.9 (60.0-200.0); Potassium 4.2 mmol/L (3.5-5.5)
--- NOTE | 2020-08-26 11:45 | P.PN ---
Subjective Progress Note Date: 08/26/20 Principal diagnosis: Acute covid 19 pneumonia, and syncope This is a 50-year-old white male, known history of hypertension and hypercholesterolemia, patient has been feeling ill for the last 4 days. Symptoms have been mostly classic symptoms of covid 19 infection. Including in termittent episodes of fever, severe headache, night sweats, intermittent diarrhea, loss of sensation of taste and smell. And last ones they, patient woke up from his sleep with significant night sweats, and as he walked to get a drink, patient passed out for about 1 minute in the living room. picked him up, and he was unconscious for about a minute. He was brought into the ER, workup included CT of the brain, chest x-ray, and neurological consultation as well as CT angiogram of the head and neck. And EEG. All of it was nondiagnostic. Chest x-ray clearly showed new pulmonary infiltrates and atelectasis bilaterally. Consistent with mild case of acute Covid 19 pneumonitis. Patient is on room air, saturation is 94%. Not requiring any oxygen supplement. CBC was relatively normal left lites are normal renal profile is normal LDH was borderline elevated at 560 pro calcitonin was normal 0.03. Lactic acid was normal. D-dimer 0.51. Reevaluated today on 08/26/2020, patient seems to be doing much better today. He does have intermittent cough, some shortness of breath upon activity, remains on room air with O2 saturation 94%. Patient is afebrile and vital signs are stable. Basic metabolic profile is normal today. Objective - Vital Signs Vital signs: Vital Signs Temp 97.4 F L 08/26/20 07:00 Pulse 68 08/26/20 07:00 Resp 16 08/26/20 07:00 BP 120/74 08/26/20 07:00 Pulse Ox 94 L 08/26/20 07:00 Intake & Output 08/25/20 08/26/20 08/26/20 18:59 06:59 18:59 Intake Total 840 Balance 840 Intake: Oral 840 Other: Voiding Method Toilet # Voids 3 1 - Exam Physical Exam: Revealed a 50-year-old white male pleasant in no distress, on room air. Head: Normocephalic, patient did have evidence of healing abrasion on the right orbit and forehead. HEENT:[Neck is supple.] [No neck masses.] [No thyromegaly.] [No JVD.] Chest: [Diminished breath sounds at the bases minimal crackles at the bases no rhonchi and no wheezes. Cardiac Exam: [Normal S1 and S2, no S3 gallop, no murmur.] Abdomen: [Soft, nontender, no megaly, no rebound, no guarding, normal bowel sounds.] Extremities: [No clubbing, no edema, no cyanosis.] Neurological Exam: [No focal neurologic deficit.] Alert and oriented 3. Skin: Abrasion right orbit and the right forehead area./Healed fully. - Labs CBC & Chem 7: 08/24/20 10:45 08/26/20 05:46 Labs: Abnormal Lab Results - Last 24 Hours (Table) 08/26/20 Range/Units 05:46 Calcium 8.6 L (8.7-10.3) mg/dL Assessment and Plan Assessment: Impression: Syncopal episode strongly suspect orthostatic hypotension and dehydration related to his Covid 19 infection Acute Covid 19 pneumonia, but no significant hypoxia. Multiple constitutional symptoms secondary to Covid 19 infection. Headaches secondary to Covid 19 infection. Benign essential hypertension. Dyslipidemia. Recommendation: No need for supplemental oxygen at this point. Continue the Covid 19 cocktail. Continue Decadron and continue colchicine orally. At least for the next 10 days Continue ascorbic acid. Consider discharge home today Time with Patient: Less than 30
--- NOTE | 2020-08-26 14:22 | XR ---
EXAMINATION TYPE: XR chest 1V portable DATE OF EXAM: 08/26/2020 COMPARISON: 08/23/2020 INDICATION: Covid TECHNIQUE: Single frontal view of the chest is obtained. FINDINGS: The heart size is normal. The pulmonary vasculature is normal. Patchy infiltrates within the bilateral lungs. Findings. Worsening. IMPRESSION: 1. Patchy bilateral lung infiltrates can be compatible with atypical pneumonia.
--- NOTE | 2020-08-27 10:23 | P.DS ---
Providers Date of admission: 08/23/20 21:37 Expected date of discharge: 08/26/20 Attending physician: Lamberto Barry Consults: 08/23/20 21:49 Consult Physician Routine Consulting Provider: Karel Moss Consult Reason/Comments: Headache, dizziness Do you want consulting provider notified?: Yes, Notify in am 08/24/20 10:18 Consult Physician Routine Consulting Provider: Antonio Rodriguez Consult Reason/Comments: covid positive Do you want consulting provider notified?: Yes Primary care physician: Lamberto Barry Hospital Course: Hospital course: Syncope, suspect secondary to vasovagal ,dehydration, related to acute Covid 19 pneumonitis.negative for orthostatic hypotension . Headaches secondary to the above Increasing generalized weakness secondary to the above Cephalgia secondary to the above Mild hyponatremia secondary to #1 Acute renal insufficiency secondary to #1 Hypertension Hyperlipidemia Hospital course:This is a 50-year-old gentleman admitted with syncope, acute co vid- 19 pneumonia and multiple other medical issues. Neuro workup in progress, Brain MRI scheduled. Pulmonary consult in place, recommendations pending. Harsh nonproductive cough. Maintaining O2 sats in the 90s on room air. Denies chest pain, palpitations. Afebrile, normal WBC. Evaluated and treated by both pulmonary and neurology. Neurology workup completed/benign .Maintaining O2 sats in the mid 90s on room air. Vital signs stable, afebrile. BMP within normal limits. Patient feels better, denies any lightheadedness, dizziness or focal deficits. Denies any chest pain, palpitations or increased shortness of breath. Significant clinical improvement. Cleared by both pulmonary and neurology for discharge per Patient will be discharged home today in a stable condition with guarded prognosis. The impression and plan of care has been dictated as directed. : I performed a history and examination of this patient, discussed the same with the dictator. I agree with the dictator's note ,documented as a scribe. Any additional findings or plans will be noted. Patient Condition at Discharge: Stable Plan - Discharge Summary Discharge Rx Participant: No New Discharge Prescriptions: New traMADol HCL 50 mg PO Q6H PRN #6 tablet PRN Reason: Pain Ascorbic Acid [Vitamin C] 1,000 mg PO DAILY tab Butalb/APAP/Caff 50-325-40Mg [Fioricet 50-325-40] 1 each PO Q4HR PRN #12 tab PRN Reason: Headache Zinc Sulfate [Orazinc] 220 mg PO DAILY #30 cap Cholecalciferol [Vitamin D3 (25 Mcg = 1000 Iu)] 125 mcg PO DAILY tablet dexAMETHasone [Hexadrol] 6 mg PO DAILY 7 Days #21 tablet Continue Pravastatin Sodium [Pravachol] 40 mg PO DAILY Losartan Potassium [Cozaar] 50 mg PO DAILY Discontinued Azithromycin [Zithromax Z-pack (6 tabs)] See Taper PO DIRECTED Discharge Medication List Losartan Potassium [Cozaar] 50 mg PO DAILY 08/23/20 [History] Pravastatin Sodium [Pravachol] 40 mg PO DAILY 08/23/20 [History] Ascorbic Acid [Vitamin C] 1,000 mg PO DAILY tab 08/26/20 [Rx] Butalb/APAP/Caff 50-325-40Mg [Fioricet 50-325-40] 1 each PO Q4HR PRN #12 tab 08/26/20 [Rx] Cholecalciferol [Vitamin D3 (25 Mcg = 1000 Iu)] 125 mcg PO DAILY tablet 08/26/20 [Rx] Zinc Sulfate [Orazinc] 220 mg PO DAILY #30 cap 08/26/20 [Rx] dexAMETHasone [Hexadrol] 6 mg PO DAILY 7 Days #21 tablet 08/26/20 [Rx] traMADol HCL 50 mg PO Q6H PRN #6 tablet 08/26/20 [Rx] Follow up Appointment(s)/Referral(s): Lamberto Barry DO [Primary Care Provider] - 3 Days Activity/Diet/Wound Care/Special Instructions: Pending final DC recommendations and clearance from pulmonary Complete quarantine at home as instructed Discharge Disposition: HOME SELF-CARE
== END 2020-08-26 13:50 | disposition home or self-care (01) | DRG 177 ==
LOC: EC 16:46 → 6NMEDSUR 21:37 → OBSVTOIN 08-25 15:14
PROVIDERS: ADMIT Family Medicine; ATTEND Family Medicine
DX: U07.1 COVID-19 (principal); J12.82 Pneumonia due to coronavirus disease 2019; E87.1 Hypo-osmolality and hyponatremia; J98.11 Atelectasis; I10 Essential (primary) hypertension; E86.0 Dehydration; I95.1 Orthostatic hypotension; N28.9 Disorder of kidney and ureter, unspecified; E78.00 Pure hypercholesterolemia, unspecified
CPT/HCPCS: 36415; 70450; 70496; 70498; 70553; 71045; 71046; 80048; 80053; 82550; 82728; 83605; 83615; 83735; 83880; 84145; 84484; 85025; 85379; 93005; 93306; 95816; 96361; 96374; 96375; 99285